=== PATIENT | male | born 1945 | race African-American/Black ===

== ENCOUNTER 2022-03-27 11:42 | Inpatient (IN) | payer OTHER ==
[~2022-03-27] VITALS: Ht 243.8 cm; Wt 84.4 kg
[2022-03-27 12:55] LABS: BASOPHILS % 0.6 % (0.0-2.0); EOSINOPHILS % 1.2 % (0.0-5.0); HEMATOCRIT. 37.9 % (42.0-52.0); HEMOGLOBIN. 12.4 g/dL (14.0-18.0); LYMPHOCYTES % 10.4 % (20.0-50.0); MEAN CORPUSCULAR HEMOGLOBIN 30.5 pg (28.0-32.0); MEAN CORPUSCULAR VOLUME 93.1 fL (80.0-94.0); MONOCYTES % 8.8 % (2.0-8.0); PLATELET 180 x1000/uL (130-400); RED BLOOD CELL COUNT 4.06 mill/uL (4.7-6.1); RED CELL DISTRIBUTION WIDTH 16.8 % (11.6-14.6)
[2022-03-27] MEDS ORDERED: AZITHROMYCIN 500MG/250ML 250 ML IV ONE (13:15)
[2022-03-27] MEDS ORDERED: FUROSEMIDE 40MG/4ML VIAL IVP ONE (13:15)
[2022-03-27] MEDS ORDERED: CEFTRIAXONE 1 G PREMIX 50 ML IV ONE (13:15)
[2022-03-27 13:40] LABS: CHLORIDE 110 mEq/L (98-107)
[2022-03-27] MEDS ORDERED: ONDANSETRON HCL 4MG/2ML INJ IV PRN (15:30)
[2022-03-27] MEDS ORDERED: NITROGLYCERIN 0.4MG TABLET SL SL PRN (15:30)
[2022-03-27] MEDS ORDERED: ACETAMINOPHEN 325MG TABLET PO PRN ×2 (15:30)
[2022-03-27] MEDS ORDERED: GUAIFENESIN 200MG/10ML SUGAR FREE UDC PO PRN (15:30)
[2022-03-27] MEDS ORDERED: DEXTROSE 50% WATER 50ML SYRINGE IV PRN (15:30)
[2022-03-27] MEDS ORDERED: DOCUSATE SODIUM 100MG CAPSULE PO PRN (15:30)
[2022-03-27] MEDS ORDERED: CLONIDINE 0.1MG TABLET PO PRN (15:30)
[2022-03-27] MEDS ORDERED: MAGNESIUM/ALUMINUM HYDROXIDE/SIMETHICONE 30ML UDC PO PRN (15:30)
[2022-03-27] MEDS ORDERED: ZOLPIDEM TARTRATE 5MG TABLET PO PRN (15:30)
[2022-03-27] MEDS ORDERED: IPRATROPIUM/ALBUTEROL 0.5-3(2.5)MG/3ML NEB NEB PRN (15:30)
[2022-03-27] MEDS ORDERED: METOLAZONE 10MG TABLET PO NR ×2 (16:00→19:30)
[2022-03-27 16:24] LABS: ETHANOL BLOOD < 10 mg/dL; HDL CHOLESTEROL 75 mg/dL (40-59); LDL CHOLESTEROL 93 mg/dL (5-100); T4 FREE 1.09 ng/dL (0.76-1.46)
[2022-03-27 16:41] LABS: VITAMIN B12 SERUM 752 pg/mL (211-911)
[2022-03-27 17:17] VITALS: BP 153/98
[2022-03-27] MEDS: BLOOD SUGAR DIAGNOSTIC STRIP TEST SCH ×2 (17:53→21:00)
[2022-03-27 18:00] VITALS: BP 153/98
[2022-03-27] MEDS ORDERED: AZITHROMYCIN 500MG/250ML 250 ML IV NR (18:00)
[2022-03-27] MEDS: AZITHROMYCIN 500 MG in DEXT 5% WATER 250 ML IV SCH ×2 (18:00→18:28)
[2022-03-27] MEDS: ENOXAPARIN 40MG/0.4ML SYR SUBCUT SCH (18:29)
[2022-03-27] MEDS: INSULIN LISPRO 100 UNITS/ML SUBCUT SCH ×2 (18:30→21:00)
[2022-03-27 19:06] LABS: TOTAL IRON BINDING CAPACITY 305 ug/dL (250-450)
[2022-03-27] MEDS: FUROSEMIDE 40MG/4ML VIAL IVP SCH (20:27)
[2022-03-27] MEDS: SPIRONOLACTONE 25MG TABLET PO SCH ×2 (21:00→22:38)
[2022-03-27 22:25] VITALS: BP 152/97
[2022-03-27] MEDS: FAMOTIDINE 20MG TABLET PO SCH (22:38)
[2022-03-28] VITALS (9 sets, daily range): BP systolic 108–150; BP diastolic 51–107
[2022-03-28 02:51] LABS: *AMPHETAMINES SCREEN URINE NEGATIVE (NEGATIVE); *BARBITURATES SCREEN URINE NEGATIVE (NEGATIVE); *BENZODIAZEPINES SCREEN URINE NEGATIVE (NEGATIVE); *COCAINE SCREEN URINE NEGATIVE (NEGATIVE); CANNABINOID URINE SCREEN NEGATIVE (NEGATIVE); METHADONE URINE SCREEN NEGATIVE (NEGATIVE); OPIATES URINE SCREEN NEGATIVE (NEGATIVE); PHENCYCLIDINE URINE SCREEN NEGATIVE (NEGATIVE)
[2022-03-28] MEDS: INSULIN LISPRO 100 UNITS/ML SUBCUT SCH ×3 (06:20→20:56)
[2022-03-28] MEDS: BLOOD SUGAR DIAGNOSTIC STRIP TEST SCH ×3 (06:44→20:56)
[2022-03-28 07:14] LABS: BASOPHILS % 0.8 % (0.0-2.0); EOSINOPHILS % 3.3 % (0.0-5.0); HEMATOCRIT. 34.2 % (42.0-52.0); HEMOGLOBIN. 11.3 g/dL (14.0-18.0); LYMPHOCYTES % 11.9 % (20.0-50.0); MEAN CORPUSCULAR HEMOGLOBIN 30.6 pg (28.0-32.0); MEAN CORPUSCULAR VOLUME 92.9 fL (80.0-94.0); MEAN PLATELET VOLUME 11.3 fl (7.4-10.4); MONOCYTES % 11.1 % (2.0-8.0); NEUTROPHILS % 72.9 % (40.0-76.0); PLATELET 160 x1000/uL (130-400); RED BLOOD CELL COUNT 3.68 mill/uL (4.7-6.1); RED CELL DISTRIBUTION WIDTH 16.4 % (11.6-14.6)
[2022-03-28] MEDS: FUROSEMIDE 40MG/4ML VIAL IVP SCH ×5 (08:15→20:54)
[2022-03-28] MEDS ORDERED: LOSARTAN POTASSIUM 50 MG TABLET PO SCH (09:00)
[2022-03-28] MEDS ORDERED: ASPIRIN 325MG EC TABLET PO SCH (09:00)
[2022-03-28] MEDS: CARVEDILOL 6.25 MG TABLET PO SCH ×2 (09:42→20:56)
[2022-03-28] MEDS: AZITHROMYCIN 500 MG TABLET PO SCH (09:42)
[2022-03-28] MEDS: ASPIRIN 81MG EC TABLET PO SCH (09:43)
[2022-03-28] MEDS ORDERED: LORAZEPAM 2MG/ML CPJ ONE (12:11)
[2022-03-28] MEDS ORDERED: LORAZEPAM 0.5MG TABLET PO PRN (12:15)
[2022-03-28] MEDS: LORAZEPAM 2MG/ML CPJ IV PRN (12:23)
[2022-03-28 12:32] LABS: CHLORIDE 113 mEq/L (98-107); CREATINE KINASE 137 IU/L (39-308); CREATINE KINASE MB FRACTION 5.2 ng/mL (0.5-3.6)
[2022-03-28 12:51] LABS: PHOSPHORUS 3.7 mg/dL (2.5-4.9)
[2022-03-28] MEDS ORDERED: LIDOCAINE HCL 1% 30ML VIAL (10MG/ML) ONE (12:56)
[2022-03-28 13:56] LABS: BG BASE EXCESS -1.2 mmol/L (-2.0-2.0); BG DEOXYHEMOGLOBIN 8.2 % (0.0-5.0); BG FRACTION INSPIRED OXYGEN 34; BG HCO3 ACT 23.1 mmol/L (22.0-26.0); BG METHEMOGLOBIN 0.3 % (0.0-1.5); BG OXYGEN SATURATION 91.7 % (92.0-98.5); BG OXYHEMOGLOBIN 90.5 % (94.0-97.0); BG PCO2 37.2 mmHg (35.0-45.0); BG PO2 65.4 mmHg (75.0-100.0); BG SAMPLE SITE RIGHT BRACHIAL; BG TOTAL HEMOGLOBIN 12.5 g/dL (12.0-18.0); BG VENT MODE NASAL CANNULA
[2022-03-28] MEDS: CEFTRIAXONE 1,000 MG in DEXTROSE 5% WATER 50 ML IV SCH (13:57)
[2022-03-28] MEDS ORDERED: MAGNESIUM 2 G PREMIX 50 ML IV NR (15:30)
[2022-03-28] MEDS: IPRATROPIUM/ALBUTEROL 0.5-3(2.5)MG/3ML NEB HHN SCH ×2 (20:19→23:36)
[2022-03-28] MEDS: SPIRONOLACTONE 25MG TABLET PO SCH (20:55)
[2022-03-28] MEDS: ATORVASTATIN CALCIUM 40MG TABLET PO SCH (20:55)
[2022-03-28] MEDS: FAMOTIDINE 20MG TABLET PO SCH (20:55)
[2022-03-29] VITALS (12 sets, daily range): BP systolic 107–132; BP diastolic 51–89
[2022-03-29] MEDS: METHYLPREDNISOLONE SOD SUCC 40 MG/ML VIAL IV SCH ×4 (00:40→17:25)
[2022-03-29] MEDS: IPRATROPIUM/ALBUTEROL 0.5-3(2.5)MG/3ML NEB HHN SCH ×7 (04:16→23:56)
[2022-03-29] MEDS: BLOOD SUGAR DIAGNOSTIC STRIP TEST SCH ×4 (07:30→21:06)
[2022-03-29] MEDS: ASPIRIN 81MG EC TABLET PO SCH ×2 (09:00→09:08)
[2022-03-29] MEDS: SPIRONOLACTONE 25MG TABLET PO SCH ×2 (09:00→09:03)
[2022-03-29] MEDS: CARVEDILOL 6.25 MG TABLET PO SCH (09:00)
[2022-03-29] MEDS: AZITHROMYCIN 500 MG TABLET PO SCH ×2 (09:00→09:03)
[2022-03-29] MEDS: FUROSEMIDE 40MG/4ML VIAL IVP SCH (09:03)
[2022-03-29] MEDS: INSULIN LISPRO 100 UNITS/ML SUBCUT SCH ×4 (09:10→21:06)
[2022-03-29 12:03] LABS: BG BASE EXCESS -1.8 mmol/L (-2.0-2.0); BG CARBOXYHEMOGLOBIN 0.1 % (0.5-1.5); BG DEOXYHEMOGLOBIN 10.3 % (0.0-5.0); BG FRACTION INSPIRED OXYGEN 36; BG HCO3 ACT 22.1 mmol/L (22.0-26.0); BG METHEMOGLOBIN 0.4 % (0.0-1.5); BG OXYGEN SATURATION 89.6 % (92.0-98.5); BG OXYHEMOGLOBIN 89.2 % (94.0-97.0); BG PCO2 34.8 mmHg (35.0-45.0); BG PO2 58.7 mmHg (75.0-100.0); BG SAMPLE SITE RIGHT RADIAL; BG VENT MODE NASAL CANNULA
[2022-03-29] MEDS: CEFTRIAXONE 1,000 MG in DEXTROSE 5% WATER 50 ML IV SCH (15:24)
[2022-03-29] MEDS: ENOXAPARIN 40MG/0.4ML SYR SUBCUT SCH ×2 (15:25→16:46)
[2022-03-29 17:20] LABS: HEMATOCRIT 36.7 % (42.0-52.0); HEMOGLOBIN 11.8 g/dL (14.0-18.0); MEAN CORPUSCULAR HEMOGLOBIN 29.9 pg (28.0-32.0); MEAN CORPUSCULAR VOLUME 93.3 fL (80.0-94.0); PLATELET 175 x1000/uL (130-400); RED BLOOD CELL COUNT 3.93 mill/uL (4.7-6.1); RED CELL DISTRIBUTION WIDTH 16.8 % (11.6-14.6)
[2022-03-29 17:45] LABS: PHOSPHORUS 3.9 mg/dL (2.5-4.9)
[2022-03-29] MEDS: LORAZEPAM 2MG/ML CPJ IV PRN (19:41)
[2022-03-29] MEDS: ATORVASTATIN CALCIUM 40MG TABLET PO SCH (21:06)
[2022-03-29] MEDS: FAMOTIDINE 20MG TABLET PO SCH (21:06)
[2022-03-30] VITALS (9 sets, daily range): BP systolic 97–138; BP diastolic 70–86
[2022-03-30] MEDS: METHYLPREDNISOLONE SOD SUCC 40 MG/ML VIAL IV SCH ×2 (00:17→09:16)
[2022-03-30] MEDS: IPRATROPIUM/ALBUTEROL 0.5-3(2.5)MG/3ML NEB HHN SCH ×4 (04:00→15:24)
[2022-03-30] MEDS: BLOOD SUGAR DIAGNOSTIC STRIP TEST SCH ×2 (07:30→12:24)
[2022-03-30] MEDS ORDERED: FUROSEMIDE 20MG/2ML VIAL IVP SCH (09:00)
[2022-03-30] MEDS: AZITHROMYCIN 500 MG TABLET PO SCH (09:16)
[2022-03-30] MEDS: ASPIRIN 81MG EC TABLET PO SCH (09:16)
[2022-03-30] MEDS: INSULIN LISPRO 100 UNITS/ML SUBCUT SCH ×2 (09:18→12:53)
[2022-03-30] MEDS ORDERED: INSULIN GLARGINE 100 UNITS/ML SUBCUT SCH (10:00)
[2022-03-30 10:30] LABS: BG BASE EXCESS -4.2 mmol/L (-2.0-2.0); BG CARBOXYHEMOGLOBIN 0.3 % (0.5-1.5); BG DEOXYHEMOGLOBIN 6.4 % (0.0-5.0); BG FRACTION INSPIRED OXYGEN 24; BG HCO3 ACT 18.6 mmol/L (22.0-26.0); BG METHEMOGLOBIN 0.5 % (0.0-1.5); BG OXYGEN SATURATION 93.5 % (92.0-98.5); BG OXYHEMOGLOBIN 92.8 % (94.0-97.0); BG PCO2 27.9 mmHg (35.0-45.0); BG PH 7.441 (7.350-7.450); BG PO2 68.6 mmHg (75.0-100.0); BG SAMPLE SITE RIGHT RADIAL; BG TOTAL HEMOGLOBIN 13.1 g/dL (12.0-18.0); BG VENT MODE NASAL CANNULA
[2022-03-30] MEDS ORDERED: SPIR25TA MT (12:10)
[2022-03-30] MEDS ORDERED: FURO-151 MT (12:10)
[2022-03-30] MEDS ORDERED: ASPI-1406 PO (12:10)
[2022-03-30] MEDS ORDERED: LIP40 PO (12:10)
[2022-03-30] MEDS ORDERED: AZIT500T8 PO (12:10)
[2022-03-30] MEDS ORDERED: FAMO20TA8 PO (12:10)
[2022-03-30] MEDS: CEFTRIAXONE 1,000 MG in DEXTROSE 5% WATER 50 ML IV SCH (13:14)
[2022-03-30] MEDS ORDERED: PREDNISONE 20MG TABLET PO SCH (17:00)
== END 2022-03-30 18:33 | disposition home health service (06) | DRG 291 ==
LOC: ER 11:42 → 3WST 14:13 → SUPCPDRO 15:19 → 5EST 03-28 16:40
PROVIDERS: ADMIT Internal Medicine; ATTEND Internal Medicine
PROC: 5A09457 Assistance with Respiratory Ventilation, 24-96 Consecutive Hours, Continuous Positive Airway Pressure (ICD-10-PCS; principal; 2022-03-28)
DX: I13.0 Hypertensive heart and chronic kidney disease with heart failure and stage 1 through stage 4 chronic kidney disease, or unspecified chronic kidney disease (principal); I50.23 Acute on chronic systolic (congestive) heart failure; J96.01 Acute respiratory failure with hypoxia; J44.1 Chronic obstructive pulmonary disease with (acute) exacerbation; I24.8 Other forms of acute ischemic heart disease; N17.9 Acute kidney failure, unspecified; E44.1 Mild protein-calorie malnutrition; Z68.1 Body mass index [BMI] 19.9 or less, adult; N18.9 Chronic kidney disease, unspecified; I16.0 Hypertensive urgency; F17.200 Nicotine dependence, unspecified, uncomplicated; F41.9 Anxiety disorder, unspecified; I34.0 Nonrheumatic mitral (valve) insufficiency; I45.10 Unspecified right bundle-branch block; I25.10 Atherosclerotic heart disease of native coronary artery without angina pectoris; I25.2 Old myocardial infarction; Z79.82 Long term (current) use of aspirin; Z79.899 Other long term (current) drug therapy; Z91.14 Patient's other noncompliance with medication regimen; Z82.49 Family history of ischemic heart disease and other diseases of the circulatory system
CPT/HCPCS: 36415; 36600; 71045; 76770; 80048; 80053; 80061; 80305; 80320; 82375; 82550; 82553; 82607; 82746; 82805; 82962; 83036; 83540; 83550; 83605; 83735; 83880; 84100; 84145; 84439; 84443; 84484; 85025; 85027; 93005; 93306; 93970; 97116; 97162; 97166; 97530; 99285; C1893; J0456; J0696; J1650; J1815; J1940; J2060; J2920; J3475; J3490; J7060; G0480